=== PATIENT | female | born 1980 | race Two or more races ===

== ENCOUNTER → 2024-06-21 | Outpatient (CLI) | payer MEDICAID, SELFPAY ==
--- NOTE | 2024-06-21 13:01 | XR_ITS ---
Examination: PA lateral chest 2 views TECHNIQUE: Upright PA lateral chest 2 views Exam date and time: 2024 1311 hours INDICATIONS: Coughing chest pain beginning one month ago. FINDINGS: Normal heart size Mild opacity in the right middle lobe Left lung clear Intact osseous structures IMPRESSION: Mild pneumonia right middle lobe
== END | disposition home or self-care (01) ==
PROVIDERS: PCP Nurse Practitioner Family; Referring Provider Nurse Practitioner Family; Visit Provider Nurse Practitioner Family
DX: J18.9 Pneumonia, unspecified organism (principal)
CPT/HCPCS: 71046

== ENCOUNTER 2025-04-13 09:43 | Emergency (ER) | payer MEDICAID, SELFPAY ==
[2025-04-13 10:00] VITALS: BP 105/69; PULSE 70; RESP 19; TEMP 36.9; O2SAT 98; BMI 25.4
--- NOTE | 2025-04-13 10:15 | XR_ITS ---
The AP and lateral radiographs of the dorsal spine on 04/13/2025 at 10:20 9:00 a.m. INDICATION: Traumatic fall backwards FINDINGS: There is exceedingly minimal, insignificant scoliosis in the upper third of the dorsal spine. There is mild degenerative disc space narrowing at T5-6, T6/7, and T7-8 other than this the thoracic vertebral interspaces alignment otherwise are are entirely normal IMPRESSION: 1. There is exceedingly minimal insignificant scoliosis in the upper third of the dorsal spine 2. There are a few levels showing mild but definite degenerative disc space narrowing 3. Study is otherwise normal, negative for trauma
--- NOTE | 2025-04-13 10:15 | XR_ITS ---
AP and lateral radiographs of the cervical spine on 04/13/2025 at 10:23 a.m. CLINICAL HISTORY: Traumatic fall backwards with trauma and pain in the neck region FINDINGS: All cervical vertebra, interspaces and alignment appear normal. The upper airways and epiglottis and laryngeal airspace all appear normal IMPRESSION: Normal
--- NOTE | 2025-04-13 10:15 | XR_ITS ---
Examination: Ribs, left, with PA chest, 4 views Technique: Chest PA, RIBS AP, RPO, LPO, AP coned lower ribs 5 views Exam date and time: 04/13/2025 at 10:20 1:00 a.m. Comparison study 06/21/2024 Findings: Heart size and mediastinum are normal. Both lungs and pleural space are well expanded and clear without any evidence of fluid anywhere. No fractures are seen anywhere in the left rib cage, and I do not see any fractures in the right rib cage or shoulders or anywhere else on this study IMPRESSION: 1. Normal chest film 2. Study is entirely negative for any fractures anywhere in the chest
--- NOTE | 2025-04-13 11:46 | EDNOTE_ITS ---
ED Fall Injury RME/HPI General Chief Complaint: Fall Stated Complaint: Fell last night, left rib pain Time Seen by Provider: 04/13/25 09:47 Arrival date/time: 04/13/25 09:43 42-year-old female presents to the emergency room today stating that she had a fall from a stepladder yesterday patient reports left-sided rib pain upper back pain and neck pain. Limitations: no limitations Related Data Previous Rx's ?Medication ?Instructions ?Recorded acetaminophen 650 mg 650 mg PO Q8H PRN fever or p ain 04/06/20 tablet,extended release #30 tabs ibuprofen 600 mg tablet 600 mg PO Q8H PRN fever or p ain 04/06/20 #30 tabs albuterol sulfate 90 mcg/actuation 2 puff inhalation Q 6H PRN cough / 12/25/20 aerosol inhaler wheezing #1 inh inhalational spacing device #1 ea 12/25/20 (Aerochamber MV spacer) prednisone 20 mg tablet See Rx Instructions .Route 0 12/25/20 .COMPLEX #8 tabs hydrocodone 5 mg-acetaminophen 325 1 tab PO Q6H PRN pa in #7 tabs 08/23/22 mg tablet hydrocodone 5 mg-acetaminophen 325 1 tab PO Q6H PRN pa in #10 tabs 11/17/22 mg tablet ibuprofen 600 mg tablet 600 mg PO Q6H PRN pain #30 t abs 11/18/22 cephalexin 500 mg capsule 500 mg PO QID #40 caps 02/09 ketoconazole 2 % shampoo 1 applic topical Q14D #120 m L 02/10/24 hydrocodone 5 mg-acetaminophen 325 1 tab PO BID PRN pa in #8 tabs 04/13/25 mg tablet ibuprofen 600 mg tablet 600 mg PO Q6H #30 tabs 04/13 Allergies Allergy/AdvReac Type Severity Reaction Status Date / Time No Known Allergies Allergy Verified 04/13/25 09:48 Review of Systems Review of Systems Systems Reviewed: All systems reviewed, normal except as documented Constitutional Constitutional: Reports system reviewed and no additional complaints, except as documented, Denies fever(s) and Denies headache(s) Eyes Eyes: Reports system reviewed and no additional complaints, except as documented and Denies blurry vision ENT Ears, Nose, Mouth, and Throat: Reports system reviewed and no additional complaints, except as documented, Denies headache(s), Denies nasal congestion, Denies nasal discharge and Reports neck pain Cardiovascular Cardiovascular: Reports system reviewed and no additional complaints, except as documented, Denies chest pain and Denies dyspnea Respiratory Respiratory: Reports system reviewed and no additional complaints, except as documented, Denies chest congestion, Denies cough and Denies dyspnea Gastrointestinal Gastrointestinal: Reports system reviewed and no additional complaints, except as documented and Denies abdominal pain Musculoskeletal Musculoskeletal: Reports system reviewed and no additional complaints, except as documented, Reports back pain, Denies deformity, Reports neck pain, Denies numbness and Reports stiffness Integumentary/Breasts Skin/Breast: Reports system reviewed and no additional complaints, except as documented and Denies rash Neurologic Neurologic: Reports system reviewed and no additional complaints, except as documented, Reports as per HPI, Denies headache(s) and Denies numbness Past Medical History Past Medical History NEUROLOGIC: Negative Neurological Disorders CARDIAC: Negative Cardiac Disorders RESPIRATORY: Positive Asthma; Negative Chronic Obstructive Pulmonary Disease (COPD) GENITOURINARY: Positive Kidney Stones; Negative Renal Disease REPRODUCTIVE: Positive Previous Pregnancies ENDOCRINE: Negative Diabetes Mellitus Type 1 or Diabetes Mellitus Type 2 Social History SMOKING STATUS: Never smoker ED Exam General Limitations: Present no limitations General appearance: Present alert and in no apparent distress Head Head exam: Present atraumatic, normocephalic and normal inspection Eye Eye exam: Present normal appearance, PERRL and EOMI; Absent conjunctival injection ENT ENT exam: Present normal exam, normal oropharynx and mucous membranes moist Neck Neck exam: Present normal inspection, full ROM and trachea midline Chest Chest inspection: Present normal inspection and symmetric chest wall rise Respiratory Respiratory exam: Present normal lung sounds bilaterally; Absent respiratory distress Cardiovascular Cardiovascular exam: Present regular rate, normal rhythm and normal heart sounds Abdominal Exam Abdominal exam: Present soft and normal bowel sounds; Absent distention, tenderness, guarding or rebound Extremities Exam Extremities exam: Present normal inspection and full ROM Back Exam Back exam: Present normal inspection, full ROM, tenderness, muscle spasm and paraspinal tenderness; Absent CVA tenderness (R) or CVA tenderness (L) Neurological Exam Neurological exam: Present alert, oriented X3 and CN II-XII intact Psychiatric Psychiatric exam: Present normal affect and normal mood Skin Skin exam: Present warm, dry, intact and normal color Course Quality Measures none Orders Category Date Time Status XR cervical spine 2-3V Stat Exams 04/13/25 10:15 Completed XR ribs LT min 3V w CXR1V Stat Exams 04/13/25 10:15 Completed XR thoracic spine 3V Stat Exams 04/13/25 10:15 Completed Vital Signs Vital signs: Vital Signs Temperature 98.5 F 04/13/25 10:00 Pulse Rate 70 04/13/25 10:00 Respiratory Rate 19 04/13/25 10:00 Blood Pressure 105/69 04/13/25 10:00 Pulse Oximetry (%) 98 04/13/25 10:00 Oxygen Delivery Method Room Air 04/13/25 10:00 O2 saturation 98% room air within the limits Fall MDM Narrative MDM Narrative:: 42-year-old female presents to the emergency room today stating that she had a fall from a stepladder yesterday patient reports left-sided rib pain upper back pain and neck pain. On exam patient well-appearing does not appear ill or toxic no acute stress Imaging obtained no acute emergent findings noted Symptoms consistent with contusion Patient with no head injury no loss of consciousness Patient discharged home in no distress to follow-up with primary care doctor in the next 24 to 48 hours and for any worsening symptoms to return to the ER immediately Patient data External records reviewed:: [facility] previous records Clinical information provided by:: patient Social determinants that could affect healthcare access:: none Patient has the following chronic illnesses:: None How is presenting disease/condition affected by chronic disease/condition?: no chronic disease Evaluation data The following diagnostics were reviewed and interpreted by me:: radiology exam(s) Lab and/or radiology exams considered but not ordered:: Radiology obtained Interpretation Summary: Given Medications / Prescriptions Medications or Prescriptions considered but not ordered:: Given Medication administrations:: Given Consultations Consultation(s) initiated? (list below): No Diagnosis Fall Differential Diagnosis: other (Rib contusion, neck strain, neck sprain) Most likely diagnosis given after review of the tests above:: Contusion rib Admission Indicated Admission indicated?: not indicated Admission Request Was there a request for admission?: No Disposition Plan Disposition Plan: Discharge Discharge Attestation Discharge Attestation: The patient and all family members were given an opportunity to ask questions and understood the discharge instructions. Discharge instructions specifically effects, indications for sooner follow up or return to the emergency department, and the expected course of current diagnosis. Patient condition: Stable Discharge Plan Plan Patient Disposition: HOME (Self Care) Discharge Disposition comment: Stable Prescriptions/Referrals Prescriptions/Med Rec: New ibuprofen 600 mg tablet 600 mg PO Q6H Qty: 30 0RF hydrocodone-acetaminophen 5-325 mg tablet 1 tab PO BID MDD 10mg PRN (Reason: pain) Qty: 8 0RF No Action acetaminophen 650 mg tablet extended release 650 mg PO Q8H PRN (Reason: fever or pain) Qty: 30 0RF Rx Instructions: swallow whole; do not chew/break/dissolve/open ibuprofen 600 mg tablet 600 mg PO Q8H PRN (Reason: fever or pain) Qty: 30 0RF prednisone 20 mg tablet See Rx Instructions .ROUTE .COMPLEX Qty: 8 0RF Rx Instructions: 2 tabs (40mg) PO QAM x 3 days, then 1 tab (20mg) PO QAM x 2 days albuterol sulfate 90 mcg/actuation HFA aerosol inhaler 2 puff INH Q6H PRN (Reason: cough / wheezing ) Qty: 1 0RF Rx Instructions: administer with spacer (DME) Aerochamber MV spacer See Dose Instructions .ROUTE .MEDSUPPLY Qty: 1 0RF Dose Instruction: As directed Rx Instructions: As directed hydrocodone-acetaminophen 5-325 mg tablet 1 tab PO Q6H MDD 4 PRN (Reason: pain) Qty: 10 0RF ibuprofen 600 mg tablet 600 mg PO Q6H PRN (Reason: pain) Qty: 30 0RF hydrocodone-acetaminophen 5-325 mg tablet 1 tab PO Q6H MDD 3 PRN (Reason: pain) Qty: 7 0RF ketoconazole 2 % shampoo 1 applic topical Q14D Qty: 120 0RF cephalexin 500 mg capsule 500 mg PO QID Qty: 40 0RF Referrals: Rose Sumner FNP [Primary Care Provider] - In 1 week Problem List Clinical Impression: Contusion of rib on left side Patient/Caregiver Discharge Instructions Additional Instructions: Please follow up with your primary care doctor in the next 24-48hrs for any worsening symptoms return here immediately Print Language: Azeri Stand Alone Forms: [employer] Award Info., Patient Portal Info Letter PA/CLINIC OFFICE COORDINATOR Supervising Physician SOHAIL/NEENA Supervising Physician: dr [email or web address]
== END 2025-04-13 13:48 | disposition home or self-care (01) ==
PROVIDERS: Emergency Provider Family Medicine; PCP Nurse Practitioner Family
DX: S20.212A Contusion of left front wall of thorax, initial encounter (principal); S19.9XXA Unspecified injury of neck, initial encounter; W11.XXXA Fall on and from ladder, initial encounter
CPT/HCPCS: 71101; 72040; 72072; 99282